=== PATIENT | female | born 2000 | race Caucasian/White ===

== ENCOUNTER 2022-06-07 19:48 | Emergency (ER) | payer OTHER ==
[~2022-06-07] VITALS: Ht 167.6 cm; Wt 79.5 kg
[2022-06-07 19:56] VITALS: BP 125/70
[2022-06-07] MEDS ORDERED: ALBU8HFA IH (20:06)
[2022-06-07 20:51] LABS: COVID AG,FIA SOURCE NASOPHARYNGEAL
[2022-06-07] MEDS ORDERED: METH4TAB3 PO (21:35)
[2022-06-07] MEDS ORDERED: ALBU90AE IH (21:35)
== END 2022-06-08 02:07 | disposition home or self-care (01) ==
LOC: EMS 19:56
DX: J45.909 Unspecified asthma, uncomplicated (principal); Z20.822 Contact with and (suspected) exposure to COVID-19; Z88.2 Allergy status to sulfonamides
CPT/HCPCS: 99283

== ENCOUNTER 2024-07-15 19:36 | Emergency (ER) | payer OTHER ==
[~2024-07-15] VITALS: Ht 167.6 cm; Wt 8.0 kg
[~2024-07-15 19:36] MED LIST: ALBU18HF12 IH; ALBU90AE IH; METH4TAB3 PO
[2024-07-15 21:20] VITALS: BP 116/76; TEMP 98.8; O2SAT 97
[2024-07-15 21:55] LABS: COVID AG,FIA SOURCE NASAL SWAB
[2024-07-15 22:14] LABS: INFLUENZA TYPE B NEGATIVE FOR TYPE B (NEGATIVE); SARS-COV2 (COVID) ANTIGEN,FIA Negative (Negative)
[2024-07-15 22:36] LABS: INFLUENZA TYPE A POSITIVE FOR TYPE A (NEGATIVE)
[2024-07-15 22:40] VITALS: PULSE 101; RESP 18; O2SAT 98
[2024-07-15] MEDS: ALBUTEROL SULFATE 2.5 MG/0.5 ML NEB SOLUTION NEB ONE (22:42)
[2024-07-15] MEDS: IPRATROPIUM BROMIDE 0.5 MG/2.5 ML NEB SOLUTION NEB ONE (22:42)
[2024-07-15 22:45] VITALS: PULSE 101; RESP 18; O2SAT 98
[2024-07-15 23:00] VITALS: PULSE 104; RESP 18; O2SAT 100
[2024-07-15] MEDS ORDERED: PRED-554 PO (23:20)
[2024-07-15] MEDS ORDERED: OSEL75CA45 PO (23:20)
[2024-07-15] MEDS: PredniSONE 20 MG TABLET PO ONE (23:27)
== END 2024-07-15 23:43 | disposition home or self-care (01) ==
LOC: EMS 19:38
DX: J45.909 Unspecified asthma, uncomplicated (principal); J11.1 Influenza due to unidentified influenza virus with other respiratory manifestations; Z88.0 Allergy status to penicillin; Z88.2 Allergy status to sulfonamides; Z20.822 Contact with and (suspected) exposure to COVID-19
CPT/HCPCS: 99284; 71045; 87426; 84703; 87804; 36415; 94640; J7512; J7613

== ENCOUNTER 2025-02-26 00:11 | Emergency (ER) | payer OTHER ==
[~2025-02-26] VITALS: Ht 167.6 cm; Wt 77.3 kg
[~2025-02-26 00:11] MED LIST changes: +OSEL75CA45 PO; +PRED-554 PO
[2025-02-26 00:12] VITALS: TEMP 99
[2025-02-26 00:34] VITALS: PULSE 103; RESP 22; O2SAT 92
[2025-02-26] MEDS: IPRATROPIUM BROMIDE 0.5 MG/2.5 ML NEB SOLUTION NEB ONE (00:34)
[2025-02-26] MEDS: ALBUTEROL SULFATE 2.5 MG/0.5 ML NEB SOLUTION NEB ONE (00:34)
[2025-02-26 00:49] VITALS: PULSE 94; RESP 20; O2SAT 98
[2025-02-26] MEDS ORDERED: ALBU18HF12 IH (05:18)
[2025-02-26 05:24] VITALS: BP 115/80; PULSE 76; RESP 20; O2SAT 98
== END 2025-02-26 05:50 | disposition home or self-care (01) ==
LOC: EMS 00:12
DX: J45.909 Unspecified asthma, uncomplicated (principal); Z79.52 Long term (current) use of systemic steroids; Z88.0 Allergy status to penicillin; Z88.2 Allergy status to sulfonamides; Z79.899 Other long term (current) drug therapy
CPT/HCPCS: 99285; 71045; 94640; 93005; J7512; 94760; J7613